=== PATIENT | female | born 1975 | race Caucasian/White ===

== ENCOUNTER → 2021-01-31 13:44 | Outpatient (CLI) | payer OTHER, SELFPAY ==
--- NOTE | ~2021-01-31 | MR_ITS ---
EXAMINATION: MR knee RT wo con DATE: 01/31/2021 14:27 INDICATION: Right knee medial meniscal tear with chronic right knee pain and giving out. TECHNIQUE: Magnetic resonance imaging (MRI) of the right knee was performed without intravenous contr ast. Sequences included coronal PD-weighted FSE, coronal PD-weighted FS FSE, sagittal T2-weighted FS E, sagittal PD-weighted FS FSE and axial PD weighted fat saturated FSE. COMPARISON: None. FINDINGS: Medial compartment: Small partial-thickness radial tear extending to the inferior articular surface and the peripheral tw o thirds of the lateral aspect of the posterior horn of the medial meniscus. Partial-thickness chondr al ulceration and fissuring without degenerative subchondral changes along portions of the medial sammy f of the anterior to central weightbearing medial femoral condyle. Mild subarticular edema at the pos terolateral margin of the medial tibial plateau in the region of the meniscal tear. Lateral compartment: Lateral meniscus is normal. Articular cartilage is normal. Patellofemoral compartment: Partial-thickness chondral ulceration at the medial patellar facet with small region of subarticular edema with overlying chondral fissuring/fibrillation at the inferomedial aspect of the medial facet. Trochlear cartilage is normal. Ligaments and tendons: Anterior and posterior cruciate ligaments are normal. Mild thickening of the proximal medial collater al ligament without surrounding edema consistent with mild scarring related to chronic sprain. The fi bular collateral ligament complex is normal. The extensor mechanism is normal. The visualized medial and lateral hamstring tendons as well as the iliotibial band are normal. There is small amount of inc reased fluid signal deep to the distal gracilis tendon consistent with mild pes anserine bursitis. Fluid: Minimal right knee joint effusion with small amount of fluid in the medial and lateral gutters of the suprapatellar pouch. No loose osteochondral bodies identified. Osseous/other: Diffuse red marrow reexpansion throughout the distal diaphyseal and metaphyseal regions of the femur with small amounts more patchy red marrow reexpansion in the metaphyseal region of the proximal tibia and fibula. No fracture or pathologic marrow replacing process. Subtle tract with mild scarring at t he medial aspects of Hoffa's fat pad suggesting prior arthroscopy. IMPRESSION: 1. Small partial-thickness radial tear extending to the undersurface of the lateral posterior horn of the medial meniscus. 2. Mild medial and patellofemoral compartment osteoarthritis with regions of moderate to high-grade c hondromalacia along the medial patellar facet and weightbearing medial femoral condyle. 3. Mild pes anserine bursitis. 4. Suggestion of mild scarring related to chronic sprain at the proximal medial collateral ligament. Reviewed, dictated and finalized at location A. IMPRESSION: 1. Small partial-thickness radial tear extending to the undersurface of the lat eral posterior horn of the medial meniscus. 2. Mild medial and patellofemoral compartment osteoarthritis with regions of mo derate to high-grade chondromalacia along the medial patellar facet and weightb earing medial femoral condyle. 3. Mild pes anserine bursitis. 4. Suggestion of mild scarring related to chronic sprain at the proximal medial collateral ligament.
== END ==
DX: S83.241D Other tear of medial meniscus, current injury, right knee, subsequent encounter (principal); M17.11 Unilateral primary osteoarthritis, right knee; X58.XXXD Exposure to other specified factors, subsequent encounter
CPT/HCPCS: 73721

== ENCOUNTER → 2023-02-26 15:57 | Outpatient (CLI) | payer OTHER, SELFPAY ==
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
== END ==
DX: M17.12 Unilateral primary osteoarthritis, left knee (principal); M25.362 Other instability, left knee; M25.462 Effusion, left knee
CPT/HCPCS: 73721